=== PATIENT | female | born 1965 | race Caucasian/White ===

== ENCOUNTER 2024-09-02 03:12 | Emergency (ER) | payer BC ==
[2024-09-02] MEDS ORDERED: Ondansetron PF 4 MG/2 ML Vial ONE (03:28)
[2024-09-02 03:43] LABS: Hematocrit 53.7 % (36.0-47.0); Hemoglobin 16.7 g/dL (12.0-16.0); MDiff Complete? YES; Mean Corpuscular Hemoglobin 28.1 pg (27.0-31.0); Mean Corpuscular Volume 90.6 fl (78.0-98.0); Platelet Count 294 10x3/uL (130-400); Red Blood Cell (RBC) Count 5.93 mill/uL (4.20-5.40); White Blood Cell (WBC) Count 6.6 10x3/uL (4.8-10.8)
[2024-09-02 03:49] LABS: Bicarbonate (HCO3v) 24.2 mmol/L (22.0-28.0); CO2 Tension (PvCO2) 30.1 mmHg (42.0-51.0); Calcium, Ionized 1.13 mmol/L (1.15-1.33); Chloride 108 mmol/L (98-107); Hemoglobin - Calc 17.4 g/dL (12.0-16.0); Potassium 3.9 mmol/L (3.5-5.1); Sodium 140 mmol/L (138-145); T. Carbon Dioxide 25.2 mmol/L (22.0-28.0); vO2 Saturation-calc 73.6 % (60.0-85.0)
[2024-09-02 03:51] LABS: ALT (SGPT) 14 U/L (Less than 34); AST (SGOT) 18 U/L (11-34); Albumin 4.6 g/dL (3.1-4.5); Alkaline Phosphatase 95 U/L (40-110); Anion Gap 20 mmol/L (10-20); BUN (Urea Nitrogen) 29 mg/dL (9.8-20.1); Bilirubin, Total 1.2 mg/dL (0.3-1.2); Calc. Creatinine Clearance 0 mL/min (70-130); Calcium 9.6 mg/dL (7.8-10.44); Carbon Dioxide 22 mmol/L (22-29); Chloride 105 mmol/L (98-107); Globulin 2.9 g/dL (2.4-3.5); Glucose 99 mg/dL (70-105); Magnesium 2.0 mg/dL (1.6-2.6); Potassium 4.0 mmol/L (3.5-5.1); Sodium 143 mmol/L (136-145)
[2024-09-02 04:01] LABS: Troponin I Less than 0.010 ng/mL (< 0.028)
[2024-09-02 04:40] LABS: Glucose, Urine (Dipstick) Negative (Negative); Leukocyte Negative (Negative); Protein, Urine (Dipstick) 30 mg/dL (Neg-Trace); Specific Gravity, Urine Greater/Equal 1.030 (1.005-1.030)
[2024-09-02 04:46] LABS: Bacteria/HPF 1+ HPF (None Seen); CAUTI Indications for Culture Dysuria,urgency,freq; Mucous/LPF 1+ LPF (<2+); RBC/HPF None Seen HPF (0-3)
[2024-09-02 04:47] LABS: Urine Culture Reflex No No
[2024-09-02 04:50] LABS: Cocaine Metabolite Screen Negative (Negative); THC/Cannabinoid Screen Negative (Negative); Tricyclic Screen Negative (Negative)
== END 2024-09-02 05:30 | disposition home or self-care (01) ==
LOC: MADERS 03:12
DX: E86.0 Dehydration (principal); R19.7 Diarrhea, unspecified; R11.10 Vomiting, unspecified
CPT/HCPCS: 36416; 80053; 80306; 81001; 82330; 82435; 82803; 83735; 84132; 84295; 84484; 85014; 85025; 93005; 96361; 96365; 96375; J2405; J2550